=== PATIENT | male | born 1985 | race Caucasian/White ===

== ENCOUNTER 2017-12-29 11:27 | Emergency (ER) | payer BC, OTHER ==
[2017-12-29] MEDS ORDERED: ALBUTEROL NEB 2.5 MG/3 ML INH STA (11:44)
[2017-12-29] MEDS ORDERED: IPRATROPIUM/ALBUTEROL 3 ML NEB INH STA ×2 (11:46→12:58)
[2017-12-29] MEDS ORDERED: DEXAMETHASONE 10 MG/ML VIAL PO STA (11:47)
[2017-12-29] MEDS ORDERED: CETIRIZINE 10 MG TABLET PO STA (11:47)
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
[2017-12-29 13:34] VITALS: BP 122/71
== END 2017-12-29 13:53 | disposition home or self-care (01) ==
LOC: ED 11:27
DX: J45.901 Unspecified asthma with (acute) exacerbation (principal)
CPT/HCPCS: 94640; 94664; 99283

== ENCOUNTER 2017-12-29 17:41 | Emergency (ER) | payer BC ==
[2017-12-29] MEDS ORDERED: IPRATROPIUM/ALBUTEROL 3 ML NEB INH STA (17:45)
[2017-12-29] MEDS ORDERED: ALBUTEROL NEB 2.5 MG/3 ML INH STA ×2 (18:09→19:53)
[2017-12-29] MEDS ORDERED: predniSONE 20 MG TABLET PO STA (18:09)
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
[2017-12-29 21:14] VITALS: BP 140/76
== END 2017-12-29 21:15 | disposition home or self-care (01) ==
LOC: ED 17:41
DX: J45.901 Unspecified asthma with (acute) exacerbation (principal)
CPT/HCPCS: 94150; 94640; 94664; 99283; A9270; J7512